=== PATIENT | female | born 1985 | race Caucasian/White ===

== ENCOUNTER 2018-05-20 10:00 | Emergency (ER) | payer OTHER, SELFPAY ==
[2018-05-20 10:07] VITALS: BP 115/81; PULSE 106; RESP 20; TEMP 36.7; O2SAT 97
[2018-05-20] MEDS: Normal Saline 1,000 ML 1000 ML IV (10:58)
[2018-05-20 11:06] LABS: Abs Immature Grans 0.04 k/cumm (0.0-0.09); HCT 38.1 % (36.0-46.0); HGB 13.5 g/dL (12.0-15.5); Mean Corp. HGB Concentration 35.4 g/dL (32.0-36.0); Mean Corpuscular Hemoglobin 28.5 pg (27.0-33.0); Mean Corpuscular Volume 80.4 fL (80-95); Mean Platelet Volume 8.5 fL (8.0-11.0); Platelet Count 253 x1000/uL (130-400); RBC 4.74 m/cumm (4.00-5.20); RBC Distribution Width 12.3 % (11.7-14.6)
--- NOTE | 2018-05-20 11:17 | ED.GENADUL ---
Disposition Clinical Impression: Acute diarrhea Disposition: HOME Condition: Stable Instructions: Acute Diarrhea (ED) Additional Instructions: Return immediately to the emergency department if you begin running high fevers and chills, have blood or mucus present in your stools, or severe persistent abdominal pain. Take your antibiotic until fully gone and follow-up with your primary care provider if not improving over the next week. Prescriptions: Sulfameth/Trimeth Ds [Bactrim Ds Tablet] 1 each PO BID #10 tab Referrals: Primary Care Provider [Outside] (Follow-up with your primary care provider in the next week if possible for reassessment. You may also return to the emergency department if needed.) Medical Decision Making - Lab Data Results reviewed for labs ordered during visit: Yes - Medical Decision Making Patient presenting to the emergency department for chief complaint of persistent diarrhea for 1 week with intermittent crampy abdominal pain. Patient states that this is diffuse and watery and anytime she eats anything that exacerbates her symptoms. Physical exam shows some mild epigastric tenderness otherwise diffuse abdominal discomfort but no specific findings no signs of surgical abdomen. Concern for electrolyte abnormalities and dehydration given profuse persistent diarrhea that is watery so plan to do labs and rehydrate with IV fluids. Patient is otherwise stable and no signs of severe distress. Review of labs show mild hypokalemia and hypomagnesemia and p.o. replacement was ordered. Patient went to give a urine sample was able to without any difficulty. Review of urine sample is indeterminate and nondiagnostic but does not show severe changes in specific gravity. Patient p.o. challenged. Patient reports with p.o. challenge that she had bowel movement was able to provide a stool specimen. senior staff specialized employment said it was very odorous and liquidy. 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 Patient was encouraged to return immediately for any new or worsening symptoms otherwise when she returns home, due to her being an area traveling, she was informed that she should follow-up with her primary care provider for reassessment. Patient was informed that we will contact her with any positive results of her stool specimen. After discussion of diagnosis and plan of care with patient patient agreed and stated no further needs, questions, or concerns at this time. History of Present Illness - General Chief complaint: Nausea/Vomit/Diar Stated complaint: STOMACH PAIN Time Seen by Provider: 05/20/18 10:49 Source: patient, RN notes reviewed Mode of arrival: ambulatory Limitations: no limitations - History of Present Illness Initial comments: Patient reports for the past week she has had profuse persistent watery diarrhea. She states that she is attempted to take Imodium and stay well-hydrated but has felt weak, occasional chills, and malaised. She denies anybody in the family with similar symptoms, recent travel, fever, blood or mucus noted in the diarrhea. Onset/Timin -: week(s) Location: abdomen Severity scale (1-10): 4 Quality: aching (crampy) Consistency: constant Improves with: none Worsens with: none Associated Symptoms: denies other symptoms Treatments Prior to Arrival: other (Imodium) - Related Data Pnv Cmb#95/Ferrous Fumarate/FA [ Tablet] 1 tab PO DAILY 05/20/18 Sulfameth/Trimeth Ds [Bactrim Ds Tablet] 1 each PO BID #10 tab 05/20/18 Allergies Allergy/AdvReac Type Severity Reaction Status Date / Time No Known Allergies Allergy Unverified 05/20/18 10:08 Review of Systems Constitutional: chills, malaise. denies: fever Respiratory: denies: cough Cardiovascular: denies: chest pain Gastrointestinal: as per HPI, abdominal pain, nausea, diarrhea. denies: vomiting, constipation, hematemesis, melena, hematochezia Genitourinary: denies: dysuria Musculoskeletal: denies: back pain Skin: denies: rash Past Medical History - Past Medical History Medical history: GERD Achalasia, stomach ulcer, gallstones Surgical history: other (Tonsillectomy) - Social History Smoking status: never smoker Alcohol use: none Drug use: none Living Situation: lives with family General Exam - General Limitations: no limitations General appearance: alert, in no apparent distress - Respiratory Respiratory exam: Present: normal lung sounds bilaterally - Cardiovascular Cardiovascular Exam: Present: regular rate, normal rhythm, normal heart sounds. Absent: tachycardia, systolic murmur, diastolic murmur, rubs, gallop, clicks - GI/Abdominal GI/Abdominal exam: Present: soft (Mild epigastric tenderness and diffuse nonfocal), tenderness (Diffuse nonfocal), normal bowel sounds. Absent: guarding, rebound, rigid, organomegaly, mass, bruit, pulsatile mass - Expanded GI/Abdominal Exam No standard instances GI/Abdominal exam: Absent: White's sign, Rovsing's sign, tenderness at Mcburney's Point - Rectal Rectal exam: Present: deferred - Extremities Exam Extremities exam: Present: normal capillary refill - Back Exam Back exam: Absent: CVA tenderness (R), CVA tenderness (L) - Neurological Exam Neurological exam: Present: alert, oriented X3. Absent: altered - Skin Skin exam: Present: warm, dry, normal color. Absent: cyanosis, diaphoretic, pallor, mottled Course Vital Signs - 24 hr 05/20/ 10:07 Temperature 36.7 C Pulse 106 H Respiratory 20 Rate Blood Pressure 115/81 Pulse Oximetry 97
--- NOTE | 2018-05-20 11:21 | ED.GENADUL_ITS ---
Disposition Clinical Impression: Acute diarrhea Disposition: HOME Condition: Stable Instructions: Acute Diarrhea (ED) Additional Instructions: Return immediately to the emergency department if you begin running high fevers and chills, have blood or mucus present in your stools, or severe persistent abdominal pain. Take your antibiotic until fully gone and follow-up with your primary care provider if not improving over the next week. Prescriptions: Sulfameth/Trimeth Ds [Bactrim Ds Tablet] 1 each PO BID #10 tab Referrals: Primary Care Provider [Outside] (Follow-up with your primary care provider in the next week if possible for reassessment. You may also return to the emergency department if needed.) Medical Decision Making - Lab Data Results reviewed for labs ordered during visit: Yes - Medical Decision Making Patient presenting to the emergency department for chief complaint of persistent diarrhea for 1 week with intermittent crampy abdominal pain. Patient states that this is diffuse and watery and anytime she eats anything that exacerbates her symptoms. Physical exam shows some mild epigastric tenderness otherwise diffuse abdominal discomfort but no specific findings no signs of surgical abdomen. Concern for electrolyte abnormalities and dehydration given profuse persistent diarrhea that is watery so plan to do labs and rehydrate with IV fluids. Patient is otherwise stable and no signs of severe distress. Review of labs show mild hypokalemia and hypomagnesemia and p.o. replacement was ordered. Patient went to give a urine sample was able to without any difficulty. Review of urine sample is indeterminate and nondiagnostic but does not show severe changes in specific gravity. Patient p.o. challenged. Patient reports with p.o. challenge that she had bowel movement was able to provide a stool specimen. staff electronic warfare officer said it was very odorous and liquidy. 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 Patient was encouraged to return immediately for any new or worsening symptoms otherwise when she returns home, due to her being an area traveling, she was informed that she should follow-up with her primary care provider for reassessment. Patient was informed that we will contact her with any positive results of her stool specimen. After discussion of diagnosis and plan of care with patient patient agreed and stated no further needs, questions, or concerns at this time. History of Present Illness - General Chief complaint: Nausea/Vomit/Diar Stated complaint: STOMACH PAIN Time Seen by Provider: 05/20/18 10:49 Source: patient, RN notes reviewed Mode of arrival: ambulatory Limitations: no limitations - History of Present Illness Initial comments: Patient reports for the past week she has had profuse persistent watery diarrhea. She states that she is attempted to take Imodium and stay well- hydrated but has felt weak, occasional chills, and malaised. She denies anybody in the family with similar symptoms, recent travel, fever, blood or mucus noted in the diarrhea. Onset/Timin -: week(s) Location: abdomen Severity scale (1-10): 4 Quality: aching (crampy) Consistency: constant Improves with: none Worsens with: none Associated Symptoms: denies other symptoms Treatments Prior to Arrival: other (Imodium) - Related Data Pnv Cmb#95/Ferrous Fumarate/FA [ Tablet] 1 tab PO DAILY 05/20/18 Sulfameth/Trimeth Ds [Bactrim Ds Tablet] 1 each PO BID #10 tab 05/20/18 Allergies Allergy/AdvReac Type Severity Reaction Status Date / Time No Known Allergies Allergy Unverified 05/20/18 10:08 Review of Systems Constitutional: chills, malaise. denies: fever Respiratory: denies: cough Cardiovascular: denies: chest pain Gastrointestinal: as per HPI, abdominal pain, nausea, diarrhea. denies: vomiting, constipation, hematemesis, melena, hematochezia Genitourinary: denies: dysuria Musculoskeletal: denies: back pain Skin: denies: rash Past Medical History - Past Medical History Medical history: GERD Achalasia, stomach ulcer, gallstones Surgical history: other (Tonsillectomy) - Social History Smoking status: never smoker Alcohol use: none Drug use: none Living Situation: lives with family General Exam - General Limitations: no limitations General appearance: alert, in no apparent distress - Respiratory Respiratory exam: Present: normal lung sounds bilaterally - Cardiovascular Cardiovascular Exam: Present: regular rate, normal rhythm, normal heart sounds. Absent: tachycardia, systolic murmur, diastolic murmur, rubs, gallop, clicks - GI/Abdominal GI/Abdominal exam: Present: soft (Mild epigastric tenderness and diffuse nonfocal), tenderness (Diffuse nonfocal), normal bowel sounds. Absent: guarding , rebound, rigid, organomegaly, mass, bruit, pulsatile mass - Expanded GI/Abdominal Exam No standard instances GI/Abdominal exam: Absent: White's sign, Rovsing's sign, tenderness at Mcburney 's Point - Rectal Rectal exam: Present: deferred - Extremities Exam Extremities exam: Present: normal capillary refill - Back Exam Back exam: Absent: CVA tenderness (R), CVA tenderness (L) - Neurological Exam Neurological exam: Present: alert, oriented X3. Absent: altered - Skin Skin exam: Present: warm, dry, normal color. Absent: cyanosis, diaphoretic, pallor, mottled Course Vital Signs - 24 hr 05/20/ 10:07 Temperature 36.7 C Pulse 106 H Respiratory 20 Rate Blood Pressure 115/81 Pulse Oximetry 97
[2018-05-20 11:24] LABS: Lipase 139 U/L (73-393)
[2018-05-20 11:27] LABS: ALT 16 U/L (12-78); AST 19 U/L (15-37); Albumin 3.5 g/dL (3.4-5.0); Alkaline Phosphatase 72 U/L (46-116); Anion Gap 8.7 mmol/L (3-11); BUN 9 mg/dL (7-18); Bilirubin, Total 0.7 mg/dL (0.2-1.0); CO2 26.3 mmol/L (21.0-32.0); CREATININE 0.77 mg/dL (0.55-1.02); Calcium 8.3 mg/dL (8.5-10.1); Chloride 102 mmol/L (98-107); Glucose 87 mg/dL (70-100); Magnesium 1.5 mg/dL (1.8-2.4); Potassium 3.2 mmol/L (3.5-5.1); Sodium 137 mmol/L (136-145); Total Protein 7.2 g/dL (6.4-8.2)
[2018-05-20 11:38] LABS: Absolute Lymphocyte Count 1.85 k/cumm (1.2-3.4); Absolute Monocyte Count 0.44 k/cumm (0.11-0.7); Absolute Neutrophil Count 4.81 k/cumm (1.2-6.7); Atypical Lymphocytes % 3; Diff Comment Manual Differential
[2018-05-20 12:06] LABS: Bilirubin Small (Negative); Blood Trace-intact (Negative); Clarity Clear; Glucose Negative (Negative); Ketones 40 mg/dL (Negative); Leukocyte Esterase Negative (Negative); Nitrite Negative (Negative); Urobilinogen 0.2 EU/dL (Up TO 0.2)
[2018-05-20 12:24] LABS: Bacteria Many HPF (Negative); C & S Indicated? No/Sq. Contamination; Casts Negative LPF (Negative); Crystals Negative HPF (Negative); Mucus Heavy (Negative); Other Cells Few Transitional (Negative)
[2018-05-20 12:25] LABS: Epithelial Cells Many HPF (Negative)
[2018-05-20] MEDS: Magnesium Oxide 400 MG TAB PO (12:46)
[2018-05-20] MEDS: Potassium Chloride 20 MEQ TABCR 40 MEQ PO (12:46)
[2018-05-20 12:47] VITALS: BP 113/69; PULSE 98; RESP 18; TEMP 36.7; O2SAT 97
[2018-05-20] MEDS: Sulfameth/Trimeth DS TAB 1 TAB PO (13:40)
[2018-05-20 13:48] VITALS: BP 113/69; PULSE 98; RESP 18; TEMP 36.7; O2SAT 97
[2018-05-21 11:27] LABS: Campylobacter PCR SEE COMMENTS; Salmonella PCR SEE COMMENTS; Shiga Toxin PCR SEE COMMENTS; Shigella/Enteroinvasive Ecoli SEE COMMENTS
== END 2018-05-20 13:50 | disposition home or self-care (01) ==
PROVIDERS: Nurse Practitioner Family; Emergency Provider Student in an Organized Health Care Education/Training Program
DX: R19.7 Diarrhea, unspecified (principal)
CPT/HCPCS: 36415; 80053; 83690; 87329; 87505; 96360; 96361; 99283; 81003; 81015; 83630; 83735; 85025; 87177; 87324